=== PATIENT | female | born 1940 | race Caucasian/White ===

== ENCOUNTER 2022-12-02 09:20 | Emergency (ER) | payer MEDICARE, OTHER, SELFPAY ==
[2022-12-02 09:32] VITALS: BP 165/79; PULSE 81; RESP 16; TEMP 36.9; O2SAT 98; BMI 20.3
[2022-12-02 09:58] LABS: Appearance Urine Cloudy (Clear); Bilirubin Urine Negative (Negative); Blood Urine 1+ (Negative); Color Urine Yellow (Yellow); Glucose Urine Negative (Negative); Ketones Urine Negative (Negative); Leukocyte Esterase Urine 3+ (Negative); Nitrite Urine Positive (Negative); Protein Urine 1+ (Negative); Urobilinogen Urine 0.2 (0.2-1.0)
[2022-12-02 10:29] LABS: Bacteria Urine Many; Squamous Epithelial Cell Urine Few (None-Few); WBC Urine >100 (0-5)
[2022-12-02 10:30] LABS: Other Sediment Urine MODERATE YEAST
[2022-12-02 10:37] VITALS: BP 166/113; PULSE 94; RESP 20; O2SAT 100
--- NOTE | 2022-12-02 10:48 | ED_ITS ---
HPI - Female Genitourinary General Date Seen: 12/02/22 Chief complaint: Urogenital Problems, Female Stated complaint: UTI Time Seen by Provider: 12/02/22 10:19 Source: patient Mode of arrival: ambulatory Limitations: no limitations History of Present Illness HPI Narrative: Patient is a [place] 82-year-old female presents here with 2-3 weeks history of dysuria frequency of urination. She returned from [place], and noted that she had these symptoms. She has denies any fevers chills nausea vomiting back pain associated with this. She has been trying cranberry juice and water, with some improvement. She very irregularly gets UTIs. Denies any blood in her urine, any diarrhea, she does not have a history in the past to C diff. otherwise feels fine is eating and drinking normally. Severity: mild Female Urogenital Radiation: Non-Radiating Quality of pain: burning Consistency: constant Vaginal discharge: none Vaginal bleeding: none Urinary symptoms: Dysuria, Urgency and Frequency Exacerbating factors: none Associated symptoms: denies other symptoms Related Data Previous Rx's Medication Instructions Recorded cephalexin 500 mg capsule 500 mg PO BID #10 caps 12/02/22 Allergies Allergy/AdvReac Type Severity Reaction Status Date / Time No Known Drug Allergies Allergy Verified 12/02/22 09:31 Review of Systems Status of ROS: Reports: 6 or more systems reviewed and unremarkable except as noted in History and below PFSH [facility] Social History Smoking Status: Never smoker Do you use any of these nicotine containing products: None Second hand tobacco smoke exposure: No How often do you have a drink containing alcohol: never AUDIT-C Alcohol total score: 0 Non-prescribed substance use: denies use service: No Exam Narrative: Exam Narrative: Patient is seen in room 3 she is in no apparent distress, Patient's abdomen is soft there is no guarding, no back pain, palpation percussion, no organomegaly, no peritoneal, no tenderness. Const: Vital Signs, click to edit/add: Vital Signs - 24 hr 12/02/22 09:32 12/02/22 10:37 Temperature 98.5 F Pulse Rate [Pulse Oximeter] 81 94 Respiratory Rate 16 20 Blood Pressure [Ri ght Upper Arm] 165/79 H 166/113 H Pulse Oximetry 98 100 Oxygen Delivery Me thod Room Air Documenting provider has reviewed patient's vital signs: yes Course Vital Signs Vital signs: Initial Vital Signs Temperature 98.5 F 12/02/22 09:32 Temperature Source Temporal Artery Scan 12/02/22 09:32 Pulse Rate 81 12/02/22 09:32 Pulse Rhythm 12/02/22 09:32 Pulse Strength 3+ Normal 12/02/22 09:32 Respiratory Rate 16 12/02/22 09:32 Blood Pressure 165/79 H 12/02/22 09:32 Blood Pressure Mean 107 12/02/22 09:32 Blood Pressure Position Supine 12/02/22 09:32 Pulse Oximetry 98 12/02/22 09:32 Vital Signs Temperature 98.5 F 12/02/22 09:32 Pulse Rate 81 12/02/22 09:32 Respiratory Rate 16 12/02/22 09:32 Blood Pressure 165/79 H 12/02/22 09:32 Pulse Oximetry 98 12/02/22 09:32 Temperature 98.5 F 12/02/22 09:32 Pulse Rate 94 12/02/22 10:37 Respiratory Rate 20 12/02/22 10:37 Blood Pressure 166/113 H 12/02/22 10:37 Pulse Oximetry 100 12/02/22 10:37 Oxygen Delivery Method 12/02/22 10:37 MDM - Female Genitourinary Differential Diagnosis Differential diagnosis: Likely urinary tract infection, cervicitis, ovarian cyst and cystitis Medical Records Attestation: I reviewed the patient's medical records. Lab Data Attestation: I reviewed the patient's lab results. Labs: Lab Results 12/02/22 Range/Units 09:40 Urine Color Yellow (Yellow) Urine Appearance Cloudy A (Clear) Urine pH 6.0 (5.0-8.5) Ur Specific [place] 1.020 (1.000-1.030) Urine Protein 1+ A (Negative) Urine Glucose (UA) Negative (Negative) Urine Ketones Negative (Negative) Urine Blood 1+ A (Negative) Urine Nitrite Positive A (Negative) Urine Bilirubin Negative (Negative) Urine Urobilinogen 0.2 (0.2-1.0) Ur Leukocyte Esterase 3+ A (Negative) Urine RBC 10-25 A (0-2) Urine WBC >100 A (0-5) Ur Squamous Epith Cells Few (None-Few) Other Sediment MODERATE YEAST (None) Urine Bacteria Many A (None) Discharge Plan Discharge Clinical Impression: Urinary tract infection Patient Disposition: Home, Self-Care Condition: Stable Instructions: Urinary Tract Infection in Older Adults (ED) Additional Instructions: Home rest you may continue the cranberry pills along with fluids, medication for the next 7 days, return here if increasing fevers chills nausea vomiting back pain or significant diarrhea. Activity Level: No Restrictions Discharge Diet: Regular Prescriptions: New cephalexin 500 mg capsule 500 mg PO BID Qty: 10 0RF Stand Alone Forms: [employer] Info Instructions
[2022-12-02 11:03] VITALS: BP 171/99; PULSE 73; RESP 16
== END 2022-12-02 11:06 | disposition home or self-care (01) ==
PROVIDERS: Emergency Provider Family Medicine; PCP Family Medicine
DX: N39.0 Urinary tract infection, site not specified (principal)
CPT/HCPCS: 81001; 87086; 87186; 99283

== ENCOUNTER 2023-06-23 09:44 | Emergency (ER) | payer MEDICARE, OTHER, SELFPAY ==
[2023-06-23 09:48] VITALS: BP 156/81; PULSE 71; RESP 18; TEMP 35.9; O2SAT 99
--- NOTE | 2023-06-23 10:49 | CRLHL7_ITS ---
For Patients: As a result of the 21st Century Cures Act, medical imaging exams and procedure reports are released immediately into your electronic medical record. You may view this report before your referring provider. If you have questions, please contact your health care provider. Indication: pain two weeks, pain is more on right side of lower back Technique: Noncontrast axial CT of the lumbar spine with coronal and sagittal reformats are provided. Comparison: No prior studies are available for comparison at this institution. 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 Likely subacute L1 superior endplate compression fracture with minimal retropulsion of the posterior cortex. Likely subacute L2 inferior endplate compression fracture with retropulsion of the posterior cortex. Subacute L3 and L4 superior endplate compression fractures with retropulsion of the posterior cortex. No aggressive osseous lesions. Diffuse bone demineralization. Large hiatal hernia. T11-12: Mild retropulsion of the posterior cortex. No significant spinal canal stenosis or neural foramen narrowing. T12-L1: No significant spinal canal stenosis or neural foramen narrowing. L1-2: No significant spinal canal stenosis or neural foramen narrowing. L2-3: Retropulsion of the L2 inferior endplate and L3 superior endplate with disc bulge resulting in [id number] spinal canal stenosis. Mild neural foramen narrowing bilaterally. L3-4: Mild disc bulge. Retropulsion of the L4 posterior corner results in mild spinal canal stenosis. Moderate right neural foramen narrowing. No left neural foramina narrowing. L4-5: Disc bulge and moderate facet arthrosis. No significant spinal canal stenosis or neural foramen narrowing. L5-S1: Moderate interspace narrowing. Mild disc bulge. Advanced facet arthrosis. Moderate left and mild right neural foramen narrowing. No significant spinal canal stenosis. Impression: 1. Likely subacute L1 superior endplate compression fracture, L2 inferior endplate compression fracture, L3 and L4 superior endplate compression fractures. Mild retropulsion of the posterior cortex. 2. 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 3. Diffuse bone demineralization. 4. At L5-S1, moderate left and mild right neural foramen narrowing. 5. At L3-4, moderate right neural foramen narrowing and mild spinal canal stenosis. 6. At L2-3, mild to moderate spinal canal stenosis and mild bilateral neural foramen narrowing. Please note that all CT scans at this facility use dose modulation, iterative reconstruction, and/or weight-based dosing when appropriate to reduce radiation dose to as low as reasonably achievable. Dictated by Henrique Whatley MD @ 06/23/2023 1:25:08 PM (Electronically Signed)
--- NOTE | 2023-06-23 11:02 | ED_ITS ---
HPI - General Adult General Date Seen: 06/23/23 Chief complaint: Back Injury/Pain Stated complaint: Lower back pain Time Seen by Provider: 06/23/23 10:27 Source: patient Mode of arrival: ambulatory Limitations: no limitations History of Present Illness HPI narrative: Patient is an 83-year-old woman who presents at the recommendation of her chiropractor for evaluation of low back pain. She says she has had problems with low back pain on and off over the years, she says she does a lot of things she ?shouldn't do, such as gardening, lifting things, etcetera. She did not have any inciting events for this episode of pain, she notes that it is in the right lumbar region, without radiation, numbness, weakness, fevers, chills, night sweats, weight loss, or other acute symptoms. She says that she has been seeing her chiropractor who told her she should come in and get some x-rays to make sure that they were not treating something that was not treatable with chiropractic. Pain today is not that bad, she took ibuprofen which does help. She says her installed a ring of some sort from the ceiling in their bedroom because some mornings it is hard for her to get out of bed, but that is been present for a number of years and she uses it only when her back is flaring. Related Data Previous Rx's Medication Instructions Recorded cephalexin 500 mg capsule 500 mg PO BID #10 caps 12/02/22 calcitonin (salmon) 200 1 spray intranasal (ALT) DAILY 06/23/23 unit/actuation nasal spray #3.7 mL Allergies Allergy/AdvReac Type Severity Reaction Status Date / Time No Known Drug Allergies Allergy Verified 12/02/22 09:31 Review of Systems Status of ROS: Reports: 10 or more systems reviewed and unremarkable except as noted in History and below [facility] Social History Smoking Status: Never smoker Do you use any of these nicotine containing products: None Second hand tobacco smoke exposure: No How often do you have a drink containing alcohol: never AUDIT-C Alcohol total score: 0 Non-prescribed substance use: denies use service: No Exam Narrative: Exam Narrative: Vital signs as noted above. In general, an alert, well-appearing patient. Ambulatory without difficulty. Head: Normocephalic, atraumatic. Eyes: Pupils are equal reactive. Extraocular movements are full. Conjunctivae are normal. ENT: Mucous membranes are moist. Throat is normal. Neck: Supple without lymphadenopathy. Heart: Regular rate and rhythm. No murmur or rub. Lungs: Clear bilaterally. No increased work of breathing, crackles or wheezes. Abdomen: Soft and nontender. Back: Nontender to palpation both in the right lumbar region as well as midline. Extremities: Well perfused. No edema. No calf tenderness. Pulses intact. Neurologic: Patient is alert and oriented to person and place. Speech is fluent. Face is symmetric. Gait is stable. Strength is 5 of 5 in bilateral lower extremities, sensations intact to light touch. Affect: Normal. Skin: Warm and dry. Well perfused. Const: Vital Signs, click to edit/add: Vital Signs - 24 hr 06/23/23 09:48 Temperature 96.6 F L Pulse Rate [Right Pulse Oximeter] 71 Respiratory Rate 18 Blood Pressure [Ri ght Upper Arm] 156/81 H Pulse Oximetry 99 Oxygen Delivery Me thod Room Air Documenting provider has reviewed patient's vital signs: yes Course Course ED Course: Overall exam is fairly unremarkable, she is afebrile here, does not have any concerning associated symptoms. Discussed that in general plain films of the back for nontraumatic back pain tend not to be very helpful. Given her age however, I have agreed to do a CT scan primarily to look for the possibility of compression fracture. No radicular symptoms to suggest likely disc herniation. From a pain management standpoint, she seems to be doing well with occasional ibuprofen. CT read by Radiology as follows:Impression: 1. Likely subacute L1 superior endplate compression fracture, L2 inferior endplate compression fracture, L3 and L4 superior endplate compression fractures. Mild retropulsion of the posterior cortex. 2. 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 3. Diffuse bone demineralization. 4. At L5-S1, moderate left and mild right neural foramen narrowing. 5. At L3-4, moderate right neural foramen narrowing and mild spinal canal stenosis. 6. At L2-3, mild to moderate spinal canal stenosis and mild bilateral neural foramen narrowing. Discussed findings of subacute compression fractures with her. Recommended trial of calcitonin. Primary care follow-up if not improving over the next few weeks to month. Return any time for acute worsening. Vital Signs Vital signs: Initial Vital Signs Temperature 96.6 F L 06/23/23 09:48 Temperature Source Temporal Artery Scan 06/23/23 09:48 Pulse Rate 71 06/23/23 09:48 Respiratory Rate 18 06/23/23 09:48 Blood Pressure 156/81 H 06/23/23 09:48 Blood Pressure Mean 106 H 06/23/23 09:48 Blood Pressure Position Sitting 06/23/23 09:48 Pulse Oximetry 99 06/23/23 09:48 Oxygen Delivery Method Room Air 06/23/23 09:48 Vital Signs Temperature 96.6 F L 06/23/23 09:48 Pulse Rate 71 06/23/23 09:48 Respiratory Rate 18 06/23/23 09:48 Blood Pressure 156/81 H 06/23/23 09:48 Pulse Oximetry 99 06/23/23 09:48 Oxygen Delivery Method Room Air 06/23/23 09:48 Temperature 96.6 F L 06/23/23 09:48 Pulse Rate 71 06/23/23 09:48 Respiratory Rate 18 06/23/23 09:48 Blood Pressure 156/81 H 06/23/23 09:48 Pulse Oximetry 99 06/23/23 09:48 Oxygen Delivery Method Room Air 06/23/23 09:48 Discharge Plan Discharge Clinical Impression: Compression fracture Patient Disposition: Home, Self-Care Condition: Stable Instructions: Vertebral Compression Fracture (ED) Additional Instructions: If occasional ibuprofen is effective for you, you can continue with that. You can also try Tylenol 1000 mg up to 3 times a day. Your CT scan today shows some chronic compression fractures and a relatively new compression fracture at L1. Calcitonin is prescribed. Primary care follow-up if needed. Prescriptions: New calcitonin (salmon) 200 unit/actuation spray,non-aerosol 1 spray intranasal (ALT) DAILY Qty: 3.7 2RF No Action cephalexin 500 mg capsule 500 mg PO BID Qty: 10 0RF Follow Up/Referrals: Zackery Doan MD [Primary Care Provider] - Stand Alone Forms: [employer] Info Instructions
== END 2023-06-23 14:01 | disposition home or self-care (01) ==
PROVIDERS: Emergency Provider Emergency Medicine; PCP Family Medicine
DX: M48.56XA Collapsed vertebra, not elsewhere classified, lumbar region, initial encounter for fracture (principal)
CPT/HCPCS: 72131; 99284